=== PATIENT | female | born 1980 | race Caucasian/White ===

== ENCOUNTER 2022-01-27 07:11 | Emergency (ER) | payer MEDICAID ==
[~2022-01-27] VITALS: Ht 167.6 cm; Wt 71.8 kg
[2022-01-27 07:23] VITALS: BP 158/100
[2022-01-27] MEDS ORDERED: LISI-657 PO (07:38)
[2022-01-27] MEDS ORDERED: CYCL-448 PO (08:29)
[2022-01-27] MEDS ORDERED: IBUP-2070 PO (08:29)
[2022-01-27] MEDS ORDERED: KETOROLAC TROMETHAMINE 60 MG/2 ML VIAL IM ONE (08:30)
[2022-01-27] MEDS ORDERED: LIDOCAINE 5% TRANSDERMAL PATCH TD ONE (08:30)
[2022-01-27] MEDS ORDERED: CYCLOBENZAPRINE HCL 10 MG TABLET PO ONE (08:30)
== END 2022-01-27 09:11 | disposition home or self-care (01) ==
LOC: EDBD 07:14 → EMS 07:14
DX: M62.838 Other muscle spasm (principal); I10 Essential (primary) hypertension
CPT/HCPCS: 99283; 96372; J1885